=== PATIENT | male | born 1995 | race Caucasian/White ===

== ENCOUNTER 2019-09-14 16:21 | Emergency (ER) | payer SELFPAY ==
[~2019-09-14] VITALS: Ht 170.2 cm; Wt 99.8 kg
[2019-09-14 17:02] VITALS: BP_SYST 139
--- NOTE | 2019-09-14 17:05 | NUR ---
Patient to ER bed h1 for evaluation. Side rails up.
--- NOTE | 2019-09-14 17:10 | NUR ---
GWYN MARTINEZ at bedside examining patient.
--- NOTE | 2019-09-14 17:20 | NUR ---
PT C/O L ANKLE PAIN. PT UNABLE TO BEAR FULL WEIGHT.
[2019-09-14] MEDS ORDERED: HYDROcodone/ACETAMIN 5-325 MG TAB (NORCO/ VICODIN) PO ONE (17:45)
[2019-09-14 18:07] VITALS: BP_SYST 130
--- NOTE | 2019-09-14 18:07 | NUR ---
Patient given written and verbal discharge instructions and verbalizes understanding. ER MD discussed with patient the results and treatment provided. Patient in stable condition. ID arm band removed. Rx of MOTRIN given. Patient educated on pain management and to follow up with PMD. Pain Scale 2. Opportunity for questions provided and answered. Medication side effect fact sheet provided.
== END 2019-09-14 18:07 | disposition home or self-care (01) ==
LOC: SED 16:21
DX: S93.402A Sprain of unspecified ligament of left ankle, initial encounter (principal); R03.0 Elevated blood-pressure reading, without diagnosis of hypertension; X50.1XXA Overexertion from prolonged static or awkward postures, initial encounter; Y93.89 Activity, other specified; Y92.89 Other specified places as the place of occurrence of the external cause; Y99.8 Other external cause status
CPT/HCPCS: 99283